=== PATIENT | male | born 1945 | race Caucasian/White ===

== ENCOUNTER 2018-03-21 11:51 | Day surgery (SDC) | payer MEDICARE, OTHER ==
[~2018-03-21] VITALS: Ht 188 cm; Wt 112.5 kg
[~2018-03-21 11:51] MED LIST: ASPI81CH PO; CELE100 PO; HYDACE5 PO; HYDCHL12.5; LISI20; META800 PO; METO100ER PO; Mobic15 MG PO; Multiple Vitam1 EAC1 PO; ZESTRIL40 MG PO
--- NOTE | 2018-03-21 12:47 | NUR ---
History, Chart, Medications and Allergies reviewed before start of procedure.Lungs clear T/O to Auscultation.PRE OP TEACHING DONE. AT BEDSIDE.
[2018-03-21] MEDS ORDERED: [UNRECOGNIZED DRUG - CODE] PO (16:21)
[2018-03-21] MEDS ORDERED: [UNRECOGNIZED DRUG - CODE] PO (16:22)
--- NOTE | 2018-03-21 16:45 | NUR ---
[id number] TO LEFT KNEE
--- NOTE | 2018-03-21 20:50 | NUR ---
2049: PT REMAINS HYPERTENSIVE POST-OP AND RN CLARIFIES WITH PT THAT HOME 100MG METOPROLOL IS TAKEN BID; ORDER CHANGED TO REFLECT APPROPRIATE DOSING TIMES WITH DR. CLOUD NOTIFICATION.
[2018-03-22 05:29] LABS: BASOPHILS ABSOLUTE AUTO 0.02 K/mm3 (0.00-0.23); BASOPHILS PERCENT AUTO 0 % (0-2); EOSINOPHILS ABSOLUTE AUTO 0.01 K/mm3 (0.00-0.68); EOSINOPHILS PERCENT AUTO 0 % (0-6); Hematocrit 40.2 % (37.0-53.0); IMMATURE GRAN ABSOLUTE AUTO 0.03 K/mm3 (0.00-0.10); IMMATURE GRAN PERCENT AUTO 0 % (0-1); LYMPHOCYTES ABSOLUTE AUTO 1.33 K/mm3 (0.84-5.20); LYMPHOCYTES PERCENT AUTO 11 % (21-46); MONOCYTES ABSOLUTE AUTO 1.16 K/mm3 (0.16-1.47); MONOCYTES PERCENT AUTO 10 % (4-13); Mean Corpuscular HGB 28.2 pg (26.0-34.0); Mean Corpuscular HGB Conc 32.3 g/dL (31.5-36.5); Mean Corpuscular Volume 87 fL (80-100); Mean Platelet Volume 12.1 fL (9.1-12.4); NEUTROPHILS ABSOLUTE AUTO 9.23 K/mm3 (1.96-9.15); NEUTROPHILS PERCENT AUTO 78 % (41-73); Platelet Count 192 K/mm3 (150-400); RDW Coefficient Variation 14.9 % (11.7-14.2); RDW Standard Deviation 47.1 fL (35.1-46.3); Red Blood Cell Count 4.61 M/mm3 (4.30-5.90); White Blood Cell Count 11.78 K/mm3 (4.00-11.30)
[2018-03-22 06:21] LABS: Anion Gap 9 mmol/L (6-16); Blood Urea Nitrogen 13 mg/dL (8-24); Bun/Creatinine Ratio 15.5 (12.0-20.0); CO2, Blood 23 mmol/L (21-32); Calcium, Blood 8.2 mg/dL (8.5-10.1); Chloride, Blood 105 mmol/L (98-108); Creatinine, Blood 0.84 mg/dL (0.60-1.20); Glomerular Filtration Rate >60 (60-); Glucose, Blood 125 mg/dL (70-99); Potassium, Blood 4.3 mmol/L (3.5-5.5); Sodium, Blood 137 mmol/L (136-145)
[2018-03-22] MEDS ORDERED: ACET500 PO (10:40)
[2018-03-22] MEDS ORDERED: OXYC5 PO (10:41)
[2018-03-22] MEDS ORDERED: XARELTO10 MG PO (10:42)
--- NOTE | 2018-03-22 12:47 | NUR ---
PT MEDICATED WITH TORADOL IV PER ORDERS. FAMILY AT BEDSIDE. PT SITTING IN CHAIR. CRYOTHERAPY TO KNEE.
--- NOTE | 2018-03-22 13:20 | NUR ---
pt up to rr with min assistance. uses walker.
--- NOTE | 2018-03-22 15:39 | NUR ---
DISCHARGE PT AND FAMILY PROVIDED WITH WRITTEN AND VERBAL DISCHARGE INSTRUCTIONS. THEY REPORTED UNDERSTANDING AFTER QUESTIONS WERE ANSWERED. DRESSINGS, ROSALIO HOSE AND PRESCRIPTIONS ALSO PROVIDED. PT ESCORTED OUT AT 1505 IN W/C BY JAY VICKERS.
== END 2018-03-22 15:15 | disposition home or self-care (01) ==
LOC: ORSCMMR 11:51 → EDSTATUS 13:30 → ORD 13:30 → ORSCMMR 13:30 → SURS 17:22 → ORSCMMR 17:22 → SURS 03-22 15:15 → ORSCMMR 03-22 15:15
PROVIDERS: Orthopaedic Surgery
PROC: 0SRD0J9 Replacement of Left Knee Joint with Synthetic Substitute, Cemented, Open Approach (ICD-10-PCS; principal; 2018-03-21 13:30)
DX: M17.12 Unilateral primary osteoarthritis, left knee (principal); I10 Essential (primary) hypertension; Z86.718 Personal history of other venous thrombosis and embolism; E66.01 Morbid (severe) obesity due to excess calories; Z68.35 Body mass index [BMI] 35.0-35.9, adult; Z79.899 Other long term (current) drug therapy; Z79.82 Long term (current) use of aspirin
CPT/HCPCS: 36415; 73560-LT; 80048; 83735; 85025; 88300; 97110; 97116; 97161; 97530; C1713; C1776; J0171; J0690; J0735; J1100; J1885; J2250; J2405; J2795; J3010; J7120

== ENCOUNTER 2023-05-26 16:55 | Inpatient (IN) | payer MEDICARE, OTHER ==
[~2023-05-26] VITALS: Ht 188 cm; Wt 130.6 kg
[~2023-05-26 16:55] MED LIST changes: +ACET500 PO; +OXYC5 PO; +XARELTO10 MG PO; +[UNRECOGNIZED DRUG - CODE] PO; +[UNRECOGNIZED DRUG - CODE] PO
[2023-05-26] MEDS ORDERED: LOSARTAN POTASS25 M2 PO (17:06)
[2023-05-26] MEDS ORDERED: AMLODIPINE BESYL5 MG PO (17:06)
[2023-05-26] MEDS ORDERED: ALLOPURINOL100 M1 PO (17:06)
[2023-05-26 17:19] LABS: BASOPHILS ABSOLUTE AUTO 0.04 K/mm3 (0.00-0.23); BASOPHILS PERCENT AUTO 0 % (0-2); EOSINOPHILS ABSOLUTE AUTO 0.18 K/mm3 (0.00-0.68); EOSINOPHILS PERCENT AUTO 1 % (0-6); Hematocrit 45.5 % (37.0-53.0); IMMATURE GRAN ABSOLUTE AUTO 0.43 K/mm3 (0.00-0.10); IMMATURE GRAN PERCENT AUTO 2 % (0-1); LYMPHOCYTES ABSOLUTE AUTO 0.66 K/mm3 (0.84-5.20); LYMPHOCYTES PERCENT AUTO 3 % (21-46); MONOCYTES ABSOLUTE AUTO 0.68 K/mm3 (0.16-1.47); MONOCYTES PERCENT AUTO 4 % (4-13); Mean Corpuscular HGB 31.7 pg (26.0-34.0); Mean Corpuscular HGB Conc 35.2 g/dL (31.5-36.5); Mean Corpuscular Volume 90 fL (80-100); Mean Platelet Volume 11.5 fL (9.1-12.4); NEUTROPHILS ABSOLUTE AUTO 17.21 K/mm3 (1.96-9.15); NEUTROPHILS PERCENT AUTO 90 % (41-73); Platelet Count 151 K/mm3 (150-400); RDW Coefficient Variation 13.5 % (11.7-14.2); RDW Standard Deviation 45.1 fL (35.1-46.3); Red Blood Cell Count 5.04 M/mm3 (4.30-5.90)
[2023-05-26 17:37] LABS: Albumin/Globulin Ratio 0.6 (0.8-1.8); Bilirubin, Total 1.4 mg/dL (0.1-1.0); Calcium, Blood 8.7 mg/dL (8.5-10.1); Creatinine, Blood 0.83 mg/dL (0.60-1.20); Globulin, Blood 4.9 g/dL (2.2-4.0); Potassium, Blood 3.5 mmol/L (3.5-5.5); Total Protein, Blood 7.9 g/dL (6.4-8.2)
[2023-05-26] MEDS ORDERED: NS 1,000 ML IV SCH ×2 (18:05→23:00)
[2023-05-26] MEDS ORDERED: FentaNYL Citrate 50 MCG/ML 2 ML Injection IV ONE ×2 (18:05→19:25)
[2023-05-26] MEDS ORDERED: Ondansetron HCl 2 MG / ML 2ML Vial IV ONE (18:10)
[2023-05-26 19:03] LABS: Influenza A, PCR NEGATIVE (NEGATIVE); Influenza B, PCR NEGATIVE (NEGATIVE); Resp Syncytial Virus, PCR NEGATIVE (NEGATIVE); SARS-Cov-2 (COVID-19) PCR, MMC NEGATIVE (NEGATIVE)
[2023-05-26] MEDS ORDERED: Acetaminophen 325 MG TABLET PO ONE (19:25)
[2023-05-26] MEDS ORDERED: OxyCODONE HCL 5 MG TAB PO ONE (21:35)
[2023-05-26 21:42] LABS: Adenovirus F 40/41 Not Detected (NOT DETECT); Astrovirus Not Detected (NOT DETECT); Campylobacter Sp Not Detected (NOT DETECT); Cryptosporidium Not Detected (NOT DETECT); Cyclospora Cayetanensis Not Detected (NOT DETECT); E. Coli O157 Not Detected (NOT DETECT); Entamoeba Histolytica Not Detected (NOT DETECT); Enteroaggregative E. coli-EAEC Not Detected (NOT DETECT); Enteropathogenic E. coli-EPEC Not Detected (NOT DETECT); Enterotoxigenic E. coli-ETEC Not Detected (NOT DETECT); Giardia Lamblia Not Detected (NOT DETECT); Norovirus GI/GII Detected (NOT DETECT); Plesiomonas Shigelloides Not Detected (NOT DETECT); Rotavirus A Not Detected (NOT DETECT); Salmonella Sp Not Detected (NOT DETECT); Sapovirus Not Detected (NOT DETECT); Shiga Toxin-prod E. coli-STEC Not Detected (NOT DETECT); Shigella/Enteroin E. coli-EIEC Not Detected (NOT DETECT); Vibrio Cholerae Not Detected (NOT DETECT); Vibrio Sp Not Detected (NOT DETECT); Yersinia Enterocolitica Not Detected (NOT DETECT)
[2023-05-26 21:55] LABS: Appearance, Urine Hazy (Clear); Bilirubin, Urine Neg (Neg); Blood, Urine 3+ (Neg); Color, Urine Yellow (P-Yellow); Glucose Qualitative, Urine Neg (Neg); Ketones, Urine 3+ (Neg); Leukocyte Esterase, Urine 3+ (Neg); Nitrite, Urine Neg (Neg); Protein, Urine 2+ (Neg); Specific Gravity, Urine 1.015 (1.003-1.022); Urobilinogen, Urine NORM (Normal)
[2023-05-26] MEDS ORDERED: CefTRIAXone Sodium 1,000 MG in NS 100 ML IV SCH (22:00)
[2023-05-26] MEDS ORDERED: Naloxone HCl 0.4MG / ML 1ML Vial IV PRN (22:20)
[2023-05-26] MEDS ORDERED: OxyCODONE HCL 5 MG TAB PO PRN (22:20)
[2023-05-26] MEDS ORDERED: FentaNYL Citrate 50 MCG/ML 2 ML Injection IV PRN (22:20)
[2023-05-26] MEDS ORDERED: Ondansetron HCl 2 MG / ML 2ML Vial IV PRN (22:20)
[2023-05-26] MEDS ORDERED: Acetaminophen 325 MG TABLET PO PRN (22:20)
[2023-05-26 22:23] LABS: White Blood Cells, Urine 25-50 /hpf (0-5)
[2023-05-26 22:24] LABS: Bacteria Mod /hpf; Red Blood Cells, Urine 0-2 /hpf (0-2); Squamous Epithelial Cells Few /hpf (Few)
[2023-05-26] MEDS ORDERED: Metoprolol Succinate 50 MG TABCR PO SCH (23:00)
[2023-05-27 00:14] VITALS: BP 142/97
--- NOTE | 2023-05-27 02:22 | NUR ---
PT ARRIVED MARION 0004. PT TRANSFERED FROM [facility] TO HOSPITAL BED VIA THE BLACK SLIDE SHEET. PT WEAK, PER NURSE REPORT, GEOPHYSICAL OBSERVER STATED THAT PT WAS A 2P SBAX TO BSC FOR TRANSFERS. PT ADMITTED FOR ENTERITIS SEPSIS. PT WAS ON THE FLOOR AT HIS HOME FOR SEVERAL HOURS. PT A&O x4, VSS, AFEBRILE, PT ON RA, RESP RATE EVEN AND UNLABORED. NO C/O NAUSEA, NO VOMITING. PT USED BEDPAN HE FELT HE HAD TO HAVE BM. PRN IV FENTANYL GIVEN WITH GOOD RESULTS. PT RECEIVING CONTINUOUS IV FLUIDS. PT REFUSED 2 RN SKIN ASSESSMENT. PT STATED THAT HE DID NOT HAVE ANY SKIN ISSUES, NO DECUBITUS ULCERS. PAIN LOCATED TO L KNEE, R SHOULDER AND HAS CHRONIC LOWER BACK PAIN. CALL LIGHT WITHIN REACH, WCTM.
[2023-05-27 06:14] LABS: BASOPHILS ABSOLUTE AUTO 0.05 K/mm3 (0.00-0.23); BASOPHILS PERCENT AUTO 0 % (0-2); EOSINOPHILS PERCENT AUTO 0 % (0-6); Hematocrit 47.7 % (37.0-53.0); Hemoglobin 16.2 g/dL (13.5-17.5); IMMATURE GRAN ABSOLUTE AUTO 0.28 K/mm3 (0.00-0.10); IMMATURE GRAN PERCENT AUTO 2 % (0-1); LYMPHOCYTES ABSOLUTE AUTO 0.95 K/mm3 (0.84-5.20); LYMPHOCYTES PERCENT AUTO 5 % (21-46); MONOCYTES PERCENT AUTO 6 % (4-13); Mean Corpuscular HGB 31.7 pg (26.0-34.0); Mean Corpuscular Volume 93 fL (80-100); Mean Platelet Volume 11.8 fL (9.1-12.4); NEUTROPHILS ABSOLUTE AUTO 15.08 K/mm3 (1.96-9.15); NEUTROPHILS PERCENT AUTO 86 % (41-73); Platelet Count 156 K/mm3 (150-400); RDW Coefficient Variation 13.6 % (11.7-14.2); RDW Standard Deviation 46.5 fL (35.1-46.3); Red Blood Cell Count 5.11 M/mm3 (4.30-5.90); White Blood Cell Count 17.46 K/mm3 (4.00-11.30)
[2023-05-27 08:30] VITALS: BP 123/89
[2023-05-27] MEDS ORDERED: AmLODIPine Besylate 5 MG Tab PO SCH (09:00)
[2023-05-27] MEDS ORDERED: Tamsulosin HCl 0.4 MG Cap PO SCH (09:00)
[2023-05-27] MEDS ORDERED: Ketorolac Tromethamine 30mg Vial IM ONE (09:00)
[2023-05-27] MEDS ORDERED: Enoxaparin 40 MG/0.4 ML SYR SC SCH (09:00)
[2023-05-27] MEDS ORDERED: Losartan Potassium 25 MG Tab PO SCH (09:00)
[2023-05-27] MEDS ORDERED: NS 1,000 ML IV SCH (09:00)
[2023-05-27] MEDS ORDERED: Lactobacil 2-S.Thermo-Bifido 1 1 Cap PO SCH (09:00)
[2023-05-27] MEDS ORDERED: Cefepime HCl 2,000 MG in NS 100 ML IV SCH (11:00)
[2023-05-27] MEDS ORDERED: Ketorolac Tromethamine 15mg Vial IV ONE (11:25)
[2023-05-27 14:01] VITALS: BP 88/66
[2023-05-27 14:10] VITALS: BP 93/63
[2023-05-27] MEDS ORDERED: Metoprolol Tartrate 1 MG/ML 5 ML VIAL IV PRN (14:50)
[2023-05-27 16:35] LABS: Albumin, Blood 2.8 g/dL (3.4-5.0); Albumin/Globulin Ratio 0.5 (0.8-1.8); Bilirubin, Total 1.1 mg/dL (0.1-1.0); Calcium, Blood 8.3 mg/dL (8.5-10.1); Creatinine, Blood 0.61 mg/dL (0.60-1.20); Globulin, Blood 5.1 g/dL (2.2-4.0); Potassium, Blood 3.1 mmol/L (3.5-5.5); Total Protein, Blood 7.9 g/dL (6.4-8.2)
[2023-05-27] MEDS ORDERED: Potassium Chloride 20 MEQ TabCR PO ONE (18:45)
--- NOTE | 2023-05-27 19:35 | NUR ---
SHIFT SUMMARY PT UNABLE TO OBTAIN MRI DUE TO WT. US ORDERED BY INSTEAD. REPORTS OF SEVERE R SHOULDER PAIN AND L KNEE PAIN WHICH HE REPORTED TORODAL DIDN'T HELP AT ALL. ICE DID EASE PAIN A BIT THOUGH. HEART RATE RAPID AND IRREGULAR THIS MORNING. OBTAINED TELE ORDERS AND FOUND TO BE IN AFIB WITH HEART RATE IN 110-130'S. AT BEDSIDE THIS AFTERNOON. INSTRUCTED ON HOW TO CLEAN AT HOME DUE TO NOROVIRUS. UP TO RECLINER BY P.T. THIS MORNING AND THEN PT REPORTS HIS SON IN LAW PUT HIM BACK TO BED. REQUESTING TO USE BATHROOM LATE MORNING FOR A BM. INSISTED ON USING COMMODE OR BATHROOM RATHER THAN BEDPAN. ONCE BEING ATTEMPTED TO GET UP HE WAS RESISTANT TO SAFEST WAYS TO GET HIM UP AND ENDED UP NEEDING TO USE SIT TO STAND FOR TRANSFERRING. WOULDN'T FOLLOW DIRECTIONS FOR HIS OR STAFF SAFETY DUE TO HIS SHOULDER AND L KNEE HURTING. MD AWARE OF BP AND RHYTHM CHANGES.
[2023-05-27 20:37] VITALS: BP 102/77
[2023-05-28 03:14] VITALS: BP 119/87
[2023-05-28 05:50] LABS: BASOPHILS ABSOLUTE AUTO 0.05 K/mm3 (0.00-0.23); BASOPHILS PERCENT AUTO 0 % (0-2); EOSINOPHILS ABSOLUTE AUTO 0.01 K/mm3 (0.00-0.68); EOSINOPHILS PERCENT AUTO 0 % (0-6); Hematocrit 41.8 % (37.0-53.0); Hemoglobin 14.3 g/dL (13.5-17.5); IMMATURE GRAN ABSOLUTE AUTO 0.14 K/mm3 (0.00-0.10); IMMATURE GRAN PERCENT AUTO 1 % (0-1); LYMPHOCYTES ABSOLUTE AUTO 0.99 K/mm3 (0.84-5.20); LYMPHOCYTES PERCENT AUTO 7 % (21-46); MONOCYTES ABSOLUTE AUTO 1.35 K/mm3 (0.16-1.47); MONOCYTES PERCENT AUTO 10 % (4-13); Mean Corpuscular HGB 31.6 pg (26.0-34.0); Mean Corpuscular HGB Conc 34.2 g/dL (31.5-36.5); Mean Corpuscular Volume 93 fL (80-100); Mean Platelet Volume 12.1 fL (9.1-12.4); NEUTROPHILS ABSOLUTE AUTO 11.59 K/mm3 (1.96-9.15); NEUTROPHILS PERCENT AUTO 82 % (41-73); Platelet Count 160 K/mm3 (150-400); RDW Coefficient Variation 13.5 % (11.7-14.2); RDW Standard Deviation 46.2 fL (35.1-46.3); Red Blood Cell Count 4.52 M/mm3 (4.30-5.90); White Blood Cell Count 14.13 K/mm3 (4.00-11.30)
[2023-05-28 06:35] LABS: Albumin, Blood 2.2 g/dL (3.4-5.0); Albumin/Globulin Ratio 0.5 (0.8-1.8); Bilirubin, Total 1.2 mg/dL (0.1-1.0); Bun/Creatinine Ratio 24.8 (12.0-20.0); Calcium, Blood 7.9 mg/dL (8.5-10.1); Creatinine, Blood 0.61 mg/dL (0.60-1.20); Globulin, Blood 4.2 g/dL (2.2-4.0); Potassium, Blood 2.9 mmol/L (3.5-5.5); Total Protein, Blood 6.4 g/dL (6.4-8.2)
[2023-05-28 07:54] VITALS: BP 141/84
[2023-05-28 07:55] VITALS: BP 141/84
[2023-05-28] MEDS ORDERED: Potassium Chloride 40 MEQ in NS 250 ML IV ONE ×2 (07:55→18:55)
[2023-05-28] MEDS ORDERED: Potassium Chloride 20 MEQ TabCR PO ONE ×2 (08:00→19:00)
[2023-05-28] MEDS ORDERED: Lidocaine HCl 2% 10 ML SDA INJ ONE (15:50)
[2023-05-28] MEDS ORDERED: OxyCODONE HCL 5 MG TAB PO PRN (16:30)
[2023-05-28 18:17] LABS: Body Fluid Crystals NEG (NEGATIVE)
[2023-05-28 18:24] LABS: BODY FLUID RBC 0.008 M/mm3 (0-0)
[2023-05-28 18:32] LABS: Glucose, Body Fluid 33 mg/dL; Protein, Body Fluid 2.5 g/dL
[2023-05-28 18:44] LABS: RBC Count, Synovial Fluid 8000 /mm3 (0-0); WBC Count, Synovial Fluid 42040 /mm3 (0-180)
--- NOTE | 2023-05-28 19:10 | NUR ---
SHIFT SUMMARY PATIENT ALERT AND INTERACTIVE BUT VERY PAINFUL EVEN TO TOUCH. PATIENT DIFFICULT TO TURN BECAUSE OF RESISTING WITH TURNING RELATED TO PAIN. PATIENT HAVING FREQUENT LIQUID STOOLS AND ABDOMINAL PAIN. PATIENT NAUSEATED AND NOT INTERESTED IN EATING. PATIENT DRINKING SOME LIQUIDS. IV FLUIDS INFUSING. NEW IV STARTED IN HAND. POTASSIUM RIDER GIVEN, PO HELD BECAUSE OF NOT EATING AND ABDOMINAL PAIN AND DIARRHEA. CT SCAN DONE OF L KNEE. NEEDLE ASPERATION WITH DRAINAGE SENT TO LAB OF L KNEE. PATIENT MEDICATED THROUGHOUT THE DAY FOR PAIN. PATIENT EASILY AXIOUS WITH ANY MOVEMENT OR POSITIONING.
[2023-05-28 19:33] LABS: Monocytes/Macrophages, Synovia 9 % (0-65); Neutrophils, Synovial Fluid 91 % (0-24)
[2023-05-28 19:34] LABS: Appearance, Synovial Fluid Cloudy (Clear); Color, Synovial Fluid Yellow (None-P Yel)
[2023-05-28 19:43] VITALS: BP 151/97
[2023-05-29 02:46] VITALS: BP 124/76
--- NOTE | 2023-05-29 04:21 | NUR ---
SHIFT SUMMARY PATIENT IS ALERT AND ORIENTED X3. PATIENT HAS HAD NO ACUTE EVENTS THIS SHIFT. VITAL SIGNS REVIEWED. PATIENT HAS BEEN HAVING FREQUENT LIQUID BOWEL MOVEMENTS THIS SHIFT. PATIENT HAS HAD NO COMPLAINTS OF PAIN, NAUSEA, SOB OR VOMITTING THIS SHIFT. PATIENT HAS HAD FLUIDS INFUSING ORDERED. PATIENT IS A HEAVY TWO PERSON ASSIST. BED IN LOCKED AND LOWEST POSITION. CALL LIGHT IN PLACE. WILL MONITOR UNTIL SHIFT CHANGE.
[2023-05-29 05:07] LABS: BASOPHILS ABSOLUTE AUTO 0.04 K/mm3 (0.00-0.23); BASOPHILS PERCENT AUTO 0 % (0-2); EOSINOPHILS ABSOLUTE AUTO 0.01 K/mm3 (0.00-0.68); EOSINOPHILS PERCENT AUTO 0 % (0-6); Hemoglobin 14.9 g/dL (13.5-17.5); IMMATURE GRAN ABSOLUTE AUTO 0.28 K/mm3 (0.00-0.10); IMMATURE GRAN PERCENT AUTO 2 % (0-1); LYMPHOCYTES PERCENT AUTO 9 % (21-46); MONOCYTES ABSOLUTE AUTO 2.21 K/mm3 (0.16-1.47); MONOCYTES PERCENT AUTO 14 % (4-13); Mean Corpuscular HGB 32.3 pg (26.0-34.0); Mean Corpuscular HGB Conc 35.5 g/dL (31.5-36.5); Mean Corpuscular Volume 91 fL (80-100); NEUTROPHILS PERCENT AUTO 74 % (41-73); Platelet Count 180 K/mm3 (150-400); RDW Coefficient Variation 13.2 % (11.7-14.2); RDW Standard Deviation 44.1 fL (35.1-46.3); Red Blood Cell Count 4.61 M/mm3 (4.30-5.90); White Blood Cell Count 15.34 K/mm3 (4.00-11.30)
[2023-05-29 05:36] LABS: Albumin, Blood 2.1 g/dL (3.4-5.0); Albumin/Globulin Ratio 0.5 (0.8-1.8); Bilirubin, Total 1.2 mg/dL (0.1-1.0); Bun/Creatinine Ratio 14.4 (12.0-20.0); Calcium, Blood 7.8 mg/dL (8.5-10.1); Creatinine, Blood 0.62 mg/dL (0.60-1.20); Globulin, Blood 4.4 g/dL (2.2-4.0); Total Protein, Blood 6.5 g/dL (6.4-8.2)
[2023-05-29] MEDS ORDERED: Potassium Chloride 20 MEQ TabCR PO ONE (07:00)
[2023-05-29] MEDS ORDERED: Potassium Chloride 40 MEQ in NS 250 ML IV ONE (07:20)
[2023-05-29] MEDS ORDERED: Vancomycin HCL 2,500 MG in NS 250 ML IV ONE (07:30)
[2023-05-29 07:55] VITALS: BP 168/107
[2023-05-29 07:56] VITALS: BP 168/107
--- NOTE | 2023-05-29 09:00 | NUR ---
pt laying in bed awake a/ox4, cooperative with care, follows commands well, reports pain of 8/10, medicated per orders, lungs are clear t/o, on r/a, resp even and unlabored, no cough noted, hrr, no edema noted, ppp+2, cap refill<3 sec, vs stable, afebrile, iv sites are clear and patent, btx4, abd round soft nontender, voids via urinal and briefs, having loose dark colored stools, skin c/w/d, ang kim, call light in reach. is painful to move in bed, is to weak to get oob today.
[2023-05-29 17:18] VITALS: BP 153/110
--- NOTE | 2023-05-29 18:44 | NUR ---
pt is resting quietly in bed, is painful to change his briefs, he sleeps when left undisturbed, continues to have loose dark stools. no further changes this shift. call light in reach.
[2023-05-29 19:39] VITALS: BP 158/87
[2023-05-30 02:46] VITALS: BP 152/98
[2023-05-30 05:15] LABS: BASOPHILS ABSOLUTE AUTO 0.06 K/mm3 (0.00-0.23); BASOPHILS PERCENT AUTO 0 % (0-2); EOSINOPHILS ABSOLUTE AUTO 0.07 K/mm3 (0.00-0.68); EOSINOPHILS PERCENT AUTO 1 % (0-6); Hematocrit 42.6 % (37.0-53.0); Hemoglobin 14.9 g/dL (13.5-17.5); IMMATURE GRAN ABSOLUTE AUTO 0.56 K/mm3 (0.00-0.10); IMMATURE GRAN PERCENT AUTO 4 % (0-1); LYMPHOCYTES ABSOLUTE AUTO 1.67 K/mm3 (0.84-5.20); LYMPHOCYTES PERCENT AUTO 13 % (21-46); MONOCYTES PERCENT AUTO 13 % (4-13); Mean Corpuscular HGB 32.3 pg (26.0-34.0); Mean Corpuscular Volume 92 fL (80-100); Mean Platelet Volume 11.6 fL (9.1-12.4); NEUTROPHILS ABSOLUTE AUTO 9.25 K/mm3 (1.96-9.15); NEUTROPHILS PERCENT AUTO 69 % (41-73); Platelet Count 207 K/mm3 (150-400); RDW Coefficient Variation 13.2 % (11.7-14.2); RDW Standard Deviation 44.7 fL (35.1-46.3); Red Blood Cell Count 4.62 M/mm3 (4.30-5.90); White Blood Cell Count 13.41 K/mm3 (4.00-11.30)
--- NOTE | 2023-05-30 05:47 | NUR ---
END OF SHIFT SUMMARY PT A&OX4, ANXIOUS AND FORGETFUL AT TIMES. C/O BACK AND LEFT KNEE PAIN, INCREASING WITH REPOSITIONING. MEDICATED PER EMAR WITH GOOD EFFECT. REMAINS AFIB 90S-110S ON TELE. AFEBRILE THIS SHIFT. MULTIPLE LOOSE INCONTINENT DARK STOOLS, MIXED URINARY CONTINENCE. JOHN/SKIN CARE PROVIDED. ABD VERY DISTENDED, ALONG WITH SOME +1 BLE EDEMA. IVF INFUSING ORDERED. REMAINS ON RA, SOB ON EXERTION, SATS REMAINING >92.
[2023-05-30 05:49] LABS: Albumin/Globulin Ratio 0.4 (0.8-1.8); Bilirubin, Total 1.2 mg/dL (0.1-1.0); Creatinine, Blood 0.64 mg/dL (0.60-1.20); Globulin, Blood 4.5 g/dL (2.2-4.0); Potassium, Blood 3.1 mmol/L (3.5-5.5); Total Protein, Blood 6.5 g/dL (6.4-8.2)
[2023-05-30 06:40] VITALS: BP 174/109
[2023-05-30 06:44] VITALS: BP 175/101
[2023-05-30] MEDS ORDERED: Potassium Chloride 40 MEQ in NS 250 ML IV ONE (07:55)
[2023-05-30 07:59] VITALS: BP 142/96
[2023-05-30] MEDS ORDERED: Potassium Chloride 20 MEQ TabCR PO ONE (08:00)
[2023-05-30] MEDS ORDERED: Losartan Potassium 25 MG Tab PO SCH (09:00)
[2023-05-30] MEDS ORDERED: AmLODIPine Besylate 5 MG Tab PO SCH (09:00)
[2023-05-30 14:12] LABS: Anti-Xa UFH, PHA Monitoring <0.10 IU/mL; International Normalized Ratio 1.18; Prothrombin Time Results 12.3 Sec (9.7-11.5)
[2023-05-30] MEDS ORDERED: Dose Adjust by Pharmacy XX STA ×2 (14:16→23:23)
[2023-05-30] MEDS ORDERED: Heparin Sodium,Porcine/0.5 NS 500 ML IV SCH (14:20)
--- NOTE | 2023-05-30 17:01 | NUR ---
SHIFT SUMMARY PT RESTING QUIETLY AT START OF SHIFT. IN CONTACT ISO FOR ENTERITIS, NOROVIRUS. PT WITH INFECTED/SEPTIC L KNEE HARDWARE. L KNEE ASPIRATED BY DR GOLDEN ON THE . PT TO HAVE SX DEBRIDEMENT IN AM. PT TO BE NPO AT [place]. STARTED ON HEPARIN TODAY FOR A-FIB TO AVOID ELIQUIS UNTIL AFTER SX. HEPARIN TO STOP AT 0500 AM, PER ORDERS. IVF'S D/C'D TODAY, PT IS DRINKING EXTREMELY WELL. STILL HAVING LIQUID GREEN/BLK STOOLS. ABD VERY DISTENDED. INCONTINENT OF BOWEL AND BLADDER MOST OF THE TIME. CHRONIC PAIN TO BACK AND R SHOULDER WITH TURNING. NO C/O WHEN LYING STILL. WANTING TO BE NOTIFIED OF TIME OF SX IF POSSIBLE SO SHE CAN BE HERE FOR POST OP. NO FURTHER NEEDS AT THIS TIME. CALL LT IN REACH.
[2023-05-30 17:11] VITALS: BP 151/101
[2023-05-30 19:31] VITALS: BP 124/87
[2023-05-30 20:47] LABS: Vancomycin, Trough 12.6 ug/mL (5.0-10.0)
--- NOTE | 2023-05-31 00:50 | NUR ---
RECTAL TUBE ORDERS RECD FOR RECTAL TUBE INSERTION. PT EDUCATED AND CONSENTED TO PROCEDURE. FLEXISEAL RECTAL TUBE INSERTED BY PALMER PENALOZA RN WITH THIS RN ASSIST, PT TOLERATED WELL. WATERY GREEN/BLACK STOOL IMMEDIATELY COLLECTED IN TUBING. BAG SECURED TO BED ALLOWING FOR FREE FLOW.
[2023-05-31 04:08] VITALS: BP 137/89
--- NOTE | 2023-05-31 05:12 | NUR ---
END OF SHIFT SUMMARY PT A&OX4. CONTINUES TO HAVE ABD DISTENTION AND FREQUENT WATERY DARK GREEN STOOLS, OFTEN INCONTINENT. RASH/REDNESS TO BUTTOCKS/UPPER THIGH FROM STOOL INCONTINENCE, BARRIER CREAM AND JOHN CARE PERFORMED FREQUENTLY. RECTAL TUBE NOW IN PLACE, WORKING EFFECTIVELY. REMAINS AFIB ON TELE, RATE 90S-120S, INCREASING WITH PT ACTIVITY. PT ALSO SOB WITH TURNING AND REPOSITIONING IN BED HOWEVER O2 SAT REMAINS >92 ON RA. HEPARIN GTT INFUSED THROUGH NIGHT, TITRATED PER PHARMACY. STOPPED AT 0500 PER ORDERS, ANTI-XA LAB DRAWN IMMEDIATELY BEFORE GTT STOPPED PER CONSULTATION WITH SOLE PHARMACIST. PT REMAINS NPO AFTER MIDNIGHT FOR POSSIBLE LEFT KNEE SX TODAY. MEDICATED FOR BACK, RIGHT SHOULDER, AND LEFT KNEE PAIN WITH OXY AND TYLENOL WITH GOOD EFFECT.
[2023-05-31 05:33] LABS: Hematocrit 38.6 % (37.0-53.0); Hemoglobin 13.7 g/dL (13.5-17.5); Mean Corpuscular HGB 31.5 pg (26.0-34.0); Mean Corpuscular HGB Conc 35.5 g/dL (31.5-36.5); Mean Corpuscular Volume 89 fL (80-100); Mean Platelet Volume 11.8 fL (9.1-12.4); Platelet Count 243 K/mm3 (150-400); RDW Coefficient Variation 12.9 % (11.7-14.2); RDW Standard Deviation 41.9 fL (35.1-46.3); Red Blood Cell Count 4.35 M/mm3 (4.30-5.90)
[2023-05-31 05:48] LABS: Albumin, Blood 1.9 g/dL (3.4-5.0); Albumin/Globulin Ratio 0.5 (0.8-1.8); Bun/Creatinine Ratio 16.4 (12.0-20.0); Calcium, Blood 7.8 mg/dL (8.5-10.1); Creatinine, Blood 0.49 mg/dL (0.60-1.20); Globulin, Blood 4.1 g/dL (2.2-4.0); Potassium, Blood 2.7 mmol/L (3.5-5.5)
[2023-05-31 05:57] LABS: BAND PERCENT MAN 7 % (0-8); BASOPHILS PERCENT MAN 0 % (0-2); EOSINOPHILS PERCENT MAN 0 % (0-6); LYMPHOCYTES ABSOLUTE MAN 1.52 K/mm3 (0.84-5.20); LYMPHOCYTES PERCENT MAN 11 % (21-46); MONOCYTES ABSOLUTE MAN 2.08 K/mm3 (0.16-1.47); MONOCYTES PERCENT MAN 15 % (4-13); MYELOCYTE ABSOLUTE MAN 0.13 K/mm3 (0.00-0.00); MYELOCYTE PERCENT MAN 1 % (0-0); NEUTROPHILS ABSOLUTE MAN 10.14 K/mm3 (1.96-9.15); SEG NEUTROPHILS PERCENT MAN 66 % (41-73); TOTAL CELLS COUNTED 100
[2023-05-31] MEDS ORDERED: Potassium Chl 20MEQ/Water100ML 100 ML IV STA (06:14)
[2023-05-31 06:18] LABS: Magnesium, Blood 1.8 mg/dL (1.6-2.4); Phosphorus, Blood 1.5 mg/dL (2.5-4.9)
[2023-05-31] MEDS ORDERED: Potassium Chloride 10 Meq Tablet SA PO SCH (07:00)
[2023-05-31] MEDS ORDERED: Potassium Chloride 40 MEQ in NS 250 ML IV ONE (07:10)
[2023-05-31 07:59] VITALS: BP 132/92
[2023-05-31] MEDS ORDERED: NS 250 ML IV PRN (08:20)
[2023-05-31] MEDS ORDERED: Potassium Phosphate Dibasic 30 MM in Dextrose 5% 500 ML IV SCH (11:00)
[2023-05-31] MEDS ORDERED: Ketorolac Tromethamine 30mg Vial IV STA (11:05)
[2023-05-31] MEDS ORDERED: FentaNYL Citrate 50 MCG/ML 2 ML Injection IV PRN (11:10)
[2023-05-31] MEDS ORDERED: FentaNYL Citrate 50 MCG/ML 2 ML Injection IV STA (11:32)
[2023-05-31 12:06] VITALS: BP 107/73
[2023-05-31 16:38] VITALS: BP 136/85
--- NOTE | 2023-05-31 17:30 | NUR ---
SHIFT SUMMARY PT AxOx4. PLEASANT AND COOPERATIVE WITH CARE. PT'S (PARAS) AND DAUGHTER IN ROOM MOST OF THE DAY. PT REPORTED HIGH PAIN T/O THE MORNING INTO THE EARLY AFTERNOON. TELE CALLED TO REPORT HIGH HEART RATE MULTIPLE TIMES, WHICH SEEMED TO CORRELATE WITH PTS HIGHER PAIN LEVEL. PROVIDER NOTIFIED. MEDS ADMINISTERED PER EMAR WITH REPORTED RELIEF. PT WAS EXPECTED TO GO FOR I&D OF L KNEE TODAY. PROCEDURE WAS POSTPONED UNTIL TOMORROW. PT HAD RENAL/BLADDER ULTRASOUND AND VENOUS DUPLEX STUDY TODAY. PT RECEIVED BED BATH AND BEDDING CHANGE TODAY. PT REPORTED FEELING BETTER IN THE LATER AFTERNOON. HE IS CURRENTLY SITTING UP IN CHAIR WITH AT BEDSIDE. 2 MAX ASSIST WITH GB AND FWW FOR STAND PIVOT. PT STILL VERY WEAK. FAMILY BROUGHT IN IN DINNER. DENIES ANY NEEDS AT THIS TIME. CALL LIGHT IN REACH.
[2023-05-31 20:43] VITALS: BP 123/88
[2023-05-31 23:14] LABS: Bun/Creatinine Ratio 20.5 (12.0-20.0); Calcium, Blood 8.5 mg/dL (8.5-10.1); Creatinine, Blood 0.59 mg/dL (0.60-1.20); Phosphorus, Blood 2.4 mg/dL (2.5-4.9); Potassium, Blood 3.2 mmol/L (3.5-5.5)
[2023-06-01] VITALS (18 sets, daily range): BP systolic 100–166; BP diastolic 68–106
[2023-06-01] MEDS ORDERED: Dose Adjust by Pharmacy XX STA (02:45)
--- NOTE | 2023-06-01 06:46 | NUR ---
END OF SHIFT SUMMARY PT A&O X4. MAX ASSIST TO GET PT BACK TO BED FROM RECLINER, RECTAL TUBE DISLODGED DURING MOVE, NO OBVIOUS S/S TRAUMA. REINSERTED WITHOUT INCIDENT. LATER HAD SOME LEAKING AROUND TUBE DUE TO KINK. WATERY DARK GREEN STOOL COLLECTING. JOHN AREA CLEANSED, BARRIER CREAM APPLIED. REMAINS AFIB 110-120S ON TELE, WITH INCREASE TO 140S WITH ACTIVITY. MEDICATED FOR PAIN PRN. HEPARIN DRIP D/C AT 0500 PER MD ORDER. NPO AFTER MN FOR POSSIBLE SX.
[2023-06-01] MEDS ORDERED: Potassium Phosphate Dibasic 30 MM in Dextrose 5% 500 ML IV STA (07:18)
[2023-06-01 08:11] LABS: Hematocrit 38.9 % (37.0-53.0); Hemoglobin 13.5 g/dL (13.5-17.5); Mean Corpuscular HGB 31.5 pg (26.0-34.0); Mean Corpuscular HGB Conc 34.7 g/dL (31.5-36.5); Mean Corpuscular Volume 91 fL (80-100); Mean Platelet Volume 11.6 fL (9.1-12.4); Platelet Count 278 K/mm3 (150-400); RDW Coefficient Variation 13.2 % (11.7-14.2); RDW Standard Deviation 43.3 fL (35.1-46.3); Red Blood Cell Count 4.29 M/mm3 (4.30-5.90)
[2023-06-01 08:20] LABS: Vancomycin, Trough 14.4 ug/mL (5.0-10.0)
[2023-06-01 08:22] LABS: Albumin, Blood 1.8 g/dL (3.4-5.0); Albumin/Globulin Ratio 0.4 (0.8-1.8); Bilirubin, Total 0.7 mg/dL (0.1-1.0); Bun/Creatinine Ratio 26.6 (12.0-20.0); Calcium, Blood 8.2 mg/dL (8.5-10.1); Creatinine, Blood 0.56 mg/dL (0.60-1.20); Globulin, Blood 4.3 g/dL (2.2-4.0); Potassium, Blood 2.9 mmol/L (3.5-5.5); Total Protein, Blood 6.1 g/dL (6.4-8.2)
[2023-06-01 08:24] LABS: White Blood Cell Count 19.49 K/mm3 (4.00-11.30)
[2023-06-01 08:43] LABS: BAND PERCENT MAN 8 % (0-8); BASOPHILS ABSOLUTE MAN 0.19 K/mm3 (0.00-0.23); BASOPHILS PERCENT MAN 1 % (0-2); EOSINOPHILS ABSOLUTE MAN 0.38 K/mm3 (0.00-0.68); EOSINOPHILS PERCENT MAN 2 % (0-6); LYMPHOCYTES ABSOLUTE MAN 1.75 K/mm3 (0.84-5.20); LYMPHOCYTES PERCENT MAN 9 % (21-46); MONOCYTES ABSOLUTE MAN 0.97 K/mm3 (0.16-1.47); MONOCYTES PERCENT MAN 5 % (4-13); NEUTROPHILS ABSOLUTE MAN 16.17 K/mm3 (1.96-9.15); SEG NEUTROPHILS PERCENT MAN 75 % (41-73); TOTAL CELLS COUNTED 100
[2023-06-01] MEDS ORDERED: Metoprolol Succinate 50 MG TABCR PO SCH (09:00)
[2023-06-01] MEDS ORDERED: propofoL 20 ML IV ONE (12:08)
[2023-06-01] MEDS ORDERED: Rocuronium Bromide 10 MG/ML 5ML Injection IV ONE ×2 (12:09→15:25)
[2023-06-01] MEDS ORDERED: Bupivacaine 0.5% HCl 5 MG/ML 30MLVIAL ONE (12:49)
[2023-06-01] MEDS ORDERED: propofoL 60 ML IV ONE (13:41)
[2023-06-01] MEDS ORDERED: Midazolam HCl 1MG / ML 2ML Vial ONE (13:41)
[2023-06-01] MEDS ORDERED: FentaNYL Citrate 50 MCG/ML 2 ML Injection ONE (13:56)
[2023-06-01] MEDS ORDERED: Vancomycin HCl 1000 MG ADDvantage ONE (14:20)
--- NOTE | 2023-06-01 14:39 | NUR ---
06/01/23 1439 Poppy Mccracken BETADINE SOLUTION AND DAKIN'S 0.5% SOLUTION INSTILLED INTO L KNEE JOINT CAPSULE AND CLEANED BY DR. REYES
[2023-06-01] MEDS ORDERED: Phenylephrine HCl 100 MCG/ML-NS 10MLSYR (1MG/10ML) ONE (15:25)
[2023-06-01] MEDS ORDERED: Sugammadex Sodium 200 MG/2ML SDV (100 MG/ML) ONE (15:47)
[2023-06-01] MEDS ORDERED: HYDROmorphone HCl/Pf 1MG SYR ONE (16:35)
[2023-06-01] MEDS ORDERED: Loperamide HCl 2 MG Cap PO PRN (18:00)
[2023-06-01] MEDS ORDERED: NS 500 ML IV SCH (18:00)
--- NOTE | 2023-06-01 19:57 | NUR ---
PT IS A/OX4, PLEASANT AND COOPERATIVE. THE PT WAS BEDREST TODAY DUE TO PAIN IN THE LEFT KNEE AND RIGHT SHOULDER. PT CONTINUES TO HAVE WATERY DARK DIARRHEA T/O THE DAY, THE PT WENT TO THE DAY SURGERY FROM 11:30 AM TO APROX 1800 THIS AFTERNOON FOR AN ID OF THE LEFT KNEE AND RIGHT SHOULDER. PT CAME BACK A/OX4, IA WAS MEDICATED FOR PAIN. THE PTS FAMILY WAS AT THE BEDSIDE . REPORT GIVEN TO THE NIGHT NURSE, CALL LIGHT IN REACH
--- NOTE | 2023-06-01 22:33 | NUR ---
CALLED HOSPITALIST INFORMED HIM OF POTASSIUM LAB OF 3.0, ALSO THIS MORNING'S DOSE OF POTASSIUM WAS HELD DUE TO SURGERY. ORDER RECEIVED TO GIVE 40 MEQ K+ NOW
[2023-06-01] MEDS ORDERED: Potassium Chloride 20 MEQ TabCR PO ONE (22:40)
[2023-06-02 00:54] VITALS: BP 151/85
[2023-06-02 05:11] VITALS: BP 141/88
[2023-06-02 06:03] LABS: Hematocrit 34.5 % (37.0-53.0); Hemoglobin 12.2 g/dL (13.5-17.5); Mean Corpuscular HGB Conc 35.4 g/dL (31.5-36.5); Mean Corpuscular Volume 91 fL (80-100); Mean Platelet Volume 11.3 fL (9.1-12.4); Platelet Count 324 K/mm3 (150-400); RDW Coefficient Variation 13.2 % (11.7-14.2); RDW Standard Deviation 43.6 fL (35.1-46.3); Red Blood Cell Count 3.81 M/mm3 (4.30-5.90); White Blood Cell Count 18.95 K/mm3 (4.00-11.30)
--- NOTE | 2023-06-02 06:20 | NUR ---
SHIFT SUMMARY PATIENT WAS INCONTINENT OF LIQUID STOOL 3 TIMES. PAIN MED EFFICTIVELY CONTROLLED HIS INCISONAL PAIN. DRESSINGS CD&I. DID HAVE TO CHANGE THE UPPER SUNSHINE WARP ON HIS THIGH, SOILED WITH STOOL. REMAINS IN CONTACT ISOLATION FOR NORO VIRUS. TELE A FIB 77-92 RATE. POWERGLIDE CATHETER ABLE TO EASILY DRAW MORNING LABS WHEN WE STRECHED HIS ARM OUT FROM HIS BODY.
[2023-06-02 06:34] LABS: Albumin, Blood 1.9 g/dL (3.4-5.0); Albumin/Globulin Ratio 0.5 (0.8-1.8); Bilirubin, Total 0.8 mg/dL (0.1-1.0); Bun/Creatinine Ratio 14.8 (12.0-20.0); Calcium, Blood 7.8 mg/dL (8.5-10.1); Creatinine, Blood 0.54 mg/dL (0.60-1.20); Globulin, Blood 4.2 g/dL (2.2-4.0); Potassium, Blood 3.1 mmol/L (3.5-5.5); Total Protein, Blood 6.1 g/dL (6.4-8.2)
[2023-06-02] MEDS ORDERED: Potassium Phosphate Dibasic 30 MM in Dextrose 5% 500 ML IV STA (06:54)
[2023-06-02 07:35] LABS: BAND PERCENT MAN 4 % (0-8); BASOPHILS PERCENT MAN 0 % (0-2); EOSINOPHILS PERCENT MAN 0 % (0-6); LYMPHOCYTES ABSOLUTE MAN 1.13 K/mm3 (0.84-5.20); LYMPHOCYTES PERCENT MAN 6 % (21-46); MONOCYTES ABSOLUTE MAN 1.32 K/mm3 (0.16-1.47); MONOCYTES PERCENT MAN 7 % (4-13); NEUTROPHILS ABSOLUTE MAN 16.29 K/mm3 (1.96-9.15); PLASMA CELL ABSOLUTE MAN 0.18 K/mm3 (0.00-0.00); PLASMA CELLS PERCENT MAN 1 % (0-0); SEG NEUTROPHILS PERCENT MAN 82 % (41-73); TOTAL CELLS COUNTED 100
[2023-06-02] MEDS ORDERED: Banana Flakes/Tos 1 EA Powder Pack PO SCH ×2 (09:00→21:00)
[2023-06-02 09:35] VITALS: BP 127/93
[2023-06-02 10:30] LABS: C DIFFICILE DNA Duplicate (Negative)
[2023-06-02] MEDS ORDERED: Loperamide HCl 2 MG Cap PO PRN ×2 (11:40→17:05)
[2023-06-02] MEDS ORDERED: Vancomycin HCl 125 MG Cap PO SCH ×2 (12:00)
[2023-06-02] MEDS ORDERED: Vancomycin HCl 250 MG Cap PO SCH (12:00)
[2023-06-02] MEDS ORDERED: Enoxaparin 40 MG/0.4 ML SYR SC SCH (12:00)
[2023-06-02 13:36] LABS: Adenovirus F 40/41 Not Detected (NOT DETECT); Astrovirus Not Detected (NOT DETECT); Campylobacter Sp Not Detected (NOT DETECT); Cryptosporidium Not Detected (NOT DETECT); Cyclospora Cayetanensis Not Detected (NOT DETECT); E. Coli O157 Not Detected (NOT DETECT); Entamoeba Histolytica Not Detected (NOT DETECT); Enteroaggregative E. coli-EAEC Not Detected (NOT DETECT); Enteropathogenic E. coli-EPEC Not Detected (NOT DETECT); Enterotoxigenic E. coli-ETEC Not Detected (NOT DETECT); Giardia Lamblia Not Detected (NOT DETECT); Norovirus GI/GII Not Detected (NOT DETECT); Plesiomonas Shigelloides Not Detected (NOT DETECT); Rotavirus A Not Detected (NOT DETECT); Salmonella Sp Not Detected (NOT DETECT); Sapovirus Not Detected (NOT DETECT); Shiga Toxin-prod E. coli-STEC Not Detected (NOT DETECT); Shigella/Enteroin E. coli-EIEC Not Detected (NOT DETECT); Vibrio Cholerae Not Detected (NOT DETECT); Vibrio Sp Not Detected (NOT DETECT); Yersinia Enterocolitica Not Detected (NOT DETECT)
[2023-06-02 14:41] VITALS: BP 119/66
[2023-06-02 16:46] VITALS: BP 128/78
--- NOTE | 2023-06-02 17:05 | NUR ---
report received and verified, pt a/o x 4 mumbles and makes it hard to understand but pt is doing ok just concerned with his diarrhea. pt scrotum and rectal area very red from the chronic diarrhea will have to be changed often and cleansed throughly. contact iso for possible cdiff and noro on top of esbl in blood and urine. at bedside. pt in and out of sleep pain medication given for leg and back as well as immodium for diarrhea. 2view abd xray in process, daughter at [facility]. labs show cdiff and noro negative pt back from xray, did very well and is struggling from low grade temp 99.8. will cont to monitor.
--- NOTE | 2023-06-02 17:14 | NUR ---
pt turned every 2 hours and julianne well, some pain to lower back that quickly calms
[2023-06-02] MEDS ORDERED: Potassium Chloride 20 MEQ TabCR PO ONE (18:00)
--- NOTE | 2023-06-02 19:51 | NUR ---
PT STABLE REFUSED TO EAT DINNER, TEMP SLIGHTLY ELEVATED AND COVERED WITH TYLENOL, FAMILY AT BEDSIDE. CDIFF AND NORO NEGATIVE BUT PT STILL ON ISO FIR ESBL. WILL CONT TO MONITOR. SEEMS LIKE LOOSE STOOLS HAVE LESSENED
[2023-06-02 20:18] VITALS: BP 129/68
[2023-06-03 03:27] VITALS: BP 143/89
--- NOTE | 2023-06-03 05:24 | NUR ---
SHIFT SUMMARY: Pt admitted for enteritis and is a full code. Is alert and able to make needs known. ADLs have been mostly 2p. Is on contact ISO for ESBL. is noted to have pain while moving in bed but declines to have anything for it when offered. Power glide to left upper arm is patent with dressing that is CDI. currently running [employer] NS.
[2023-06-03 05:45] LABS: BASOPHILS PERCENT AUTO 1 % (0-2); EOSINOPHILS ABSOLUTE AUTO 0.12 K/mm3 (0.00-0.68); EOSINOPHILS PERCENT AUTO 1 % (0-6); Hematocrit 31.4 % (37.0-53.0); Hemoglobin 11.3 g/dL (13.5-17.5); IMMATURE GRAN ABSOLUTE AUTO 0.57 K/mm3 (0.00-0.10); IMMATURE GRAN PERCENT AUTO 3 % (0-1); LYMPHOCYTES ABSOLUTE AUTO 2.24 K/mm3 (0.84-5.20); LYMPHOCYTES PERCENT AUTO 12 % (21-46); MONOCYTES ABSOLUTE AUTO 1.32 K/mm3 (0.16-1.47); MONOCYTES PERCENT AUTO 7 % (4-13); Mean Corpuscular HGB 32.6 pg (26.0-34.0); Mean Corpuscular Volume 91 fL (80-100); Mean Platelet Volume 11.9 fL (9.1-12.4); NEUTROPHILS ABSOLUTE AUTO 13.95 K/mm3 (1.96-9.15); NEUTROPHILS PERCENT AUTO 76 % (41-73); Platelet Count 360 K/mm3 (150-400); RDW Standard Deviation 42.3 fL (35.1-46.3); Red Blood Cell Count 3.47 M/mm3 (4.30-5.90)
[2023-06-03 06:17] LABS: Calcium, Blood 7.9 mg/dL (8.5-10.1); Creatinine, Blood 0.46 mg/dL (0.60-1.20); Potassium, Blood 3.9 mmol/L (3.5-5.5)
[2023-06-03 07:21] VITALS: BP 143/86
--- NOTE | 2023-06-03 13:04 | NUR ---
PHONE CALL PLACED TO DR REYES REQUESTING DRESSING ORDERS TO LEFT KNEE AND RIGHT SHOULDER. VERBAL ORDERS RECIEVED, SEE WOUND CARE ORDERS FOR QOD DRESSING CHANGES AND PRN.
[2023-06-03 16:01] VITALS: BP 107/68
--- NOTE | 2023-06-03 19:18 | NUR ---
SHIFT SUMMARY PATIENT HAD 2 BM DURING DAY SHIFT, 3 TOTAL DURING SHIFT. MEDICATED FOR PAIN PER EMAR. THIS RN CLINICIAN AND COMMUNITY RELATIONS ADVISOR USED LIFT TO ASSIST PATIENT TO CHAIR FOR DINNER, HE HAD AN INCONTINENCE OF BOWEL/BLADDER WITHIN 30 MINUTES OF BEING IN CHAIR. PATIENT ATTEMPTED TO STAND 2 PERSON ASSIST WITH GAIT BELT FROM RECLINER BUT UNABLE TO STAND FOR MORE THAN 1 SECOND. TRACEY AND I GOT HIM BACK TO BED WITH LIFT TO CHANGE HIM. WHILE HE DID NOT EAT BREAKFAST OR LUNCH, HE DID HAVE AN ENSURE TO SUPPLEMENT THESE MEALS 100% FOR EACH. HE IS UP EATING IN BED CHICKEN WINGS BROUGHT IN BY DAUGHTER THIS EVENING. BED IN LOW POSITION, CALL LIGHT IN REACH. PATIENT ABLE TO MAKE NEEDS KNOWN.
[2023-06-03 19:38] VITALS: BP 117/61
[2023-06-04 02:04] VITALS: BP 144/85
[2023-06-04 05:50] LABS: BASOPHILS PERCENT AUTO 1 % (0-2); EOSINOPHILS ABSOLUTE AUTO 0.16 K/mm3 (0.00-0.68); EOSINOPHILS PERCENT AUTO 1 % (0-6); Hematocrit 31.4 % (37.0-53.0); Hemoglobin 10.8 g/dL (13.5-17.5); IMMATURE GRAN ABSOLUTE AUTO 0.55 K/mm3 (0.00-0.10); IMMATURE GRAN PERCENT AUTO 4 % (0-1); LYMPHOCYTES ABSOLUTE AUTO 2.18 K/mm3 (0.84-5.20); LYMPHOCYTES PERCENT AUTO 16 % (21-46); MONOCYTES ABSOLUTE AUTO 1.43 K/mm3 (0.16-1.47); MONOCYTES PERCENT AUTO 11 % (4-13); Mean Corpuscular HGB 31.6 pg (26.0-34.0); Mean Corpuscular HGB Conc 34.4 g/dL (31.5-36.5); Mean Corpuscular Volume 92 fL (80-100); Mean Platelet Volume 11.3 fL (9.1-12.4); NEUTROPHILS ABSOLUTE AUTO 9.26 K/mm3 (1.96-9.15); NEUTROPHILS PERCENT AUTO 68 % (41-73); Platelet Count 338 K/mm3 (150-400); RDW Coefficient Variation 13.2 % (11.7-14.2); RDW Standard Deviation 43.7 fL (35.1-46.3); Red Blood Cell Count 3.42 M/mm3 (4.30-5.90); White Blood Cell Count 13.68 K/mm3 (4.00-11.30)
[2023-06-04 06:20] LABS: Albumin, Blood 1.8 g/dL (3.4-5.0); Albumin/Globulin Ratio 0.4 (0.8-1.8); Bilirubin, Total 0.9 mg/dL (0.1-1.0); Bun/Creatinine Ratio 17.2 (12.0-20.0); Calcium, Blood 8.4 mg/dL (8.5-10.1); Creatinine, Blood 0.47 mg/dL (0.60-1.20); Globulin, Blood 4.3 g/dL (2.2-4.0); Potassium, Blood 3.4 mmol/L (3.5-5.5); Total Protein, Blood 6.1 g/dL (6.4-8.2)
[2023-06-04] MEDS ORDERED: Potassium Chloride 20 MEQ TabCR PO ONE (07:00)
[2023-06-04 07:42] VITALS: BP 184/101
--- NOTE | 2023-06-04 09:36 | NUR ---
ADDENDUM TO CARE ON 06/03/23 AT 1600 DRESSINGS CHANGED TO RIGHT SHOULDER AND LEFT KNEE. BOTH SITES WELL APPROXIMATED, SUTURES IN PLACE, NO REDNESS NOTED. AREAS CLEANSED ORDERED. NEXT DRESSING CHANGES DUE ON 06/05/23 UNLESS DRESSINGS BECOME SOILED OR DISLODGED.
--- NOTE | 2023-06-04 14:14 | NUR ---
GAVE REPORT TO CHRISTINE NASH. CHRISTINE ASSUMED CARE OF PT.
[2023-06-04 14:23] VITALS: BP 158/92
--- NOTE | 2023-06-04 19:26 | NUR ---
SHIFT SUMMARY- BEDSIDE REPORT COMPLETED WITH NIGHT RN. PT ASSISTED BACK TO BED WITH THE LIFT AT THE TIME OF BEDSIDE REPORT. PG TO TRACI WAS SL AT THIS TIME WELL. PT RECIEVED OXY AT 1752 FOR PAIN IN THE LEFT KNEE. PT REPORTS IT IS MUCH BETTER, HOWEVER WITH THE LIFT AND TRANSFER BACK TO BED HE SEEMS TO STILL BE VERY PAINFUL. NIGHT RN AWARE, ONCE THE PT WAS IN BED, AT REST, PAIN SEEMED TO BE MANAGED WELL.
[2023-06-04 19:49] VITALS: BP 125/86
[2023-06-05 01:58] VITALS: BP 98/53
[2023-06-05 04:18] VITALS: BP 126/101
--- NOTE | 2023-06-05 05:31 | NUR ---
SHIFT SUMMARY ILIR WAS ALERT AND ORIENTED X 3-4 AT START OF SHIFT PT WOUND DRESSINGS CDI, DUE TO BE CHANGED TODAY 06/04. PT CONTINUES TO HAVE DIARRHEA, AND WAS THROWING UP THIS SHIFT. MEDICATED PER EMAR. PT COMPLAINS OF PAIN TO L KNEE. LIFT PT AT THIS TIME. SKIN BREAKDOWN NOTED ALL THROUGH FOLDS, JOHN AREA, AND GLUTEAL CLEFT. PT NOT THROWING UP AT THIS TIME. AM BP WAS SOFT, AND HAS BEEN TRENDING DOWN MAMMAL CONTROL AGENT RE-CHECKING AT THIS TIME. NO OTHER CHANGES NOTED TONIGHT, PT RESTING IN BED AT A LOW POSITON WITH CALL LIGHT IN REACH
[2023-06-05 05:44] LABS: BASOPHILS ABSOLUTE AUTO 0.09 K/mm3 (0.00-0.23); BASOPHILS PERCENT AUTO 0 % (0-2); EOSINOPHILS ABSOLUTE AUTO 0.04 K/mm3 (0.00-0.68); EOSINOPHILS PERCENT AUTO 0 % (0-6); Hematocrit 33.5 % (37.0-53.0); Hemoglobin 11.4 g/dL (13.5-17.5); IMMATURE GRAN ABSOLUTE AUTO 0.58 K/mm3 (0.00-0.10); IMMATURE GRAN PERCENT AUTO 3 % (0-1); LYMPHOCYTES ABSOLUTE AUTO 2.04 K/mm3 (0.84-5.20); LYMPHOCYTES PERCENT AUTO 10 % (21-46); MONOCYTES ABSOLUTE AUTO 1.73 K/mm3 (0.16-1.47); MONOCYTES PERCENT AUTO 8 % (4-13); Mean Corpuscular HGB 31.3 pg (26.0-34.0); Mean Corpuscular Volume 92 fL (80-100); Mean Platelet Volume 11.5 fL (9.1-12.4); NEUTROPHILS ABSOLUTE AUTO 16.16 K/mm3 (1.96-9.15); NEUTROPHILS PERCENT AUTO 78 % (41-73); Platelet Count 432 K/mm3 (150-400); RDW Coefficient Variation 12.8 % (11.7-14.2); RDW Standard Deviation 43.3 fL (35.1-46.3); Red Blood Cell Count 3.64 M/mm3 (4.30-5.90); White Blood Cell Count 20.64 K/mm3 (4.00-11.30)
[2023-06-05 06:06] LABS: Albumin, Blood 2.1 g/dL (3.4-5.0); Albumin/Globulin Ratio 0.4 (0.8-1.8); Bun/Creatinine Ratio 16.9 (12.0-20.0); Calcium, Blood 8.8 mg/dL (8.5-10.1); Creatinine, Blood 0.59 mg/dL (0.60-1.20); Potassium, Blood 3.8 mmol/L (3.5-5.5); Total Protein, Blood 7.1 g/dL (6.4-8.2)
[2023-06-05 08:01] VITALS: BP 142/79
[2023-06-05] MEDS ORDERED: Potassium Chloride 10 Meq Tablet SA PO SCH (09:00)
[2023-06-05] MEDS ORDERED: NS 1,000 ML IV SCH (10:00)
--- NOTE | 2023-06-05 18:31 | NUR ---
SHIFT SUMMARY PATIENT ALERT BUT WEAK. PATIENT ABLE TO VERBALIZE NEEDS. CONTINUES TO PASS SMALL AMOUNTS OF GREEN BROWN LIQUID STOOLS. PATIENT VOMITTING WHEN TURNING IN BED. NG TUBE PLACED LATER IN THE SHIFT AND OVER 1000 CC OF BROWN LIQUID REMOVED FROM STOMACH. X RAY DONE TO CONFIRM PLACEMENT. PATIENT AND FAMILY EDUCATED ON NG. PATIENT EATING ICE CHIPS TO MOISTEN MOUTH AND THROAT. WOUND CARE PROVIDED TO KNEE AND SHOULDER ORDERED. FAMILY PHOTOGRAPHED WOUNDS PER PATIENT'S REQUEST. PATIENT RESTING MORE COMFORTABLE AFTER NG PLACED AND FLUID REMOVED.
[2023-06-05 19:36] VITALS: BP 134/71
[2023-06-06 03:04] VITALS: BP 133/73
[2023-06-06 05:13] LABS: BASOPHILS ABSOLUTE AUTO 0.07 K/mm3 (0.00-0.23); BASOPHILS PERCENT AUTO 0 % (0-2); EOSINOPHILS ABSOLUTE AUTO 0.05 K/mm3 (0.00-0.68); EOSINOPHILS PERCENT AUTO 0 % (0-6); Hematocrit 31.6 % (37.0-53.0); Hemoglobin 10.9 g/dL (13.5-17.5); IMMATURE GRAN ABSOLUTE AUTO 0.42 K/mm3 (0.00-0.10); IMMATURE GRAN PERCENT AUTO 3 % (0-1); LYMPHOCYTES PERCENT AUTO 12 % (21-46); MONOCYTES ABSOLUTE AUTO 1.56 K/mm3 (0.16-1.47); MONOCYTES PERCENT AUTO 10 % (4-13); Mean Corpuscular HGB 31.5 pg (26.0-34.0); Mean Corpuscular HGB Conc 34.5 g/dL (31.5-36.5); Mean Corpuscular Volume 91 fL (80-100); Mean Platelet Volume 11.2 fL (9.1-12.4); NEUTROPHILS ABSOLUTE AUTO 12.09 K/mm3 (1.96-9.15); NEUTROPHILS PERCENT AUTO 75 % (41-73); Platelet Count 502 K/mm3 (150-400); RDW Coefficient Variation 13.2 % (11.7-14.2); RDW Standard Deviation 43.8 fL (35.1-46.3); Red Blood Cell Count 3.46 M/mm3 (4.30-5.90); White Blood Cell Count 16.09 K/mm3 (4.00-11.30)
[2023-06-06 05:39] LABS: Albumin, Blood 2.1 g/dL (3.4-5.0); Albumin/Globulin Ratio 0.4 (0.8-1.8); Bun/Creatinine Ratio 21.2 (12.0-20.0); Calcium, Blood 8.6 mg/dL (8.5-10.1); Creatinine, Blood 0.47 mg/dL (0.60-1.20); Globulin, Blood 4.7 g/dL (2.2-4.0); Potassium, Blood 3.4 mmol/L (3.5-5.5); Total Protein, Blood 6.8 g/dL (6.4-8.2)
--- NOTE | 2023-06-06 06:07 | NUR ---
SHIFT SUMMARY ILIR WAS VERY SLEEPY BUT FULLY ORIENTED ON ASSESSMENT. PT REPORTS RELIEF OF N/V SINCE PLACEMENT OF NG TUBE ON DAY SHIFT, 800ML OUT TONIGHT . PT HR WAS MORE ELEVATED TONIGHT, FLUCTUATING FROM 90'S TO 120'S BUT DID NOT MEET PARAMATERS OF PRNS, TELE REPORTS ONE EPISODE OF 9 BEATS SVT. NO OTHER CHANGES. PT RESTING IN BED AT A LOW POSITION WITH CALL LIGHT IN REACH.
[2023-06-06] MEDS ORDERED: Potassium Chloride 20 MEQ TabCR PO ONE (07:00)
--- NOTE | 2023-06-06 07:52 | NUR ---
0750- RN CALLED DR CEDEÑO AND CLARIFIED DIET ORDER. GALA GAVE VERBAL TO STOP REGULAR DIET AND PLACE ORDER FOR CLEAR LIQUID. NG TUBE TO BE STOPPED FOR 30 MINS AFTER RECEIVING MEALS/MEDS.
[2023-06-06 07:55] VITALS: BP 143/81
[2023-06-06 07:56] VITALS: BP 143/81
--- NOTE | 2023-06-06 17:28 | NUR ---
SUMMARY- AAOX4. X2 ASSIST IN BED. PT'S BACK/SHOULDER/KNEE PAIN WELL CONTROLLED WITH EMAR PAIN MEDS. CONDEM CATHETER PLACED ON PT THIS SHIFT TO HELP PREVENT SKIN BREAKDOWN. PT TURNED EVERY TWO HOURS. PT'S RIGHT SHOULDER AND LEFT KNEE DRESSING IS DUE TO BE CHANGED TOMORROW.
[2023-06-06 19:40] VITALS: BP 115/64
[2023-06-06] MEDS ORDERED: Lactobacil 2-S.Thermo-Bifido 1 1 Cap PO SCH (21:00)
[2023-06-07 05:29] VITALS: BP 142/79
[2023-06-07 05:48] LABS: BASOPHILS ABSOLUTE AUTO 0.11 K/mm3 (0.00-0.23); BASOPHILS PERCENT AUTO 1 % (0-2); EOSINOPHILS ABSOLUTE AUTO 0.17 K/mm3 (0.00-0.68); EOSINOPHILS PERCENT AUTO 1 % (0-6); Hematocrit 32.2 % (37.0-53.0); Hemoglobin 10.8 g/dL (13.5-17.5); IMMATURE GRAN ABSOLUTE AUTO 0.29 K/mm3 (0.00-0.10); IMMATURE GRAN PERCENT AUTO 2 % (0-1); LYMPHOCYTES ABSOLUTE AUTO 2.12 K/mm3 (0.84-5.20); LYMPHOCYTES PERCENT AUTO 17 % (21-46); MONOCYTES ABSOLUTE AUTO 1.45 K/mm3 (0.16-1.47); MONOCYTES PERCENT AUTO 12 % (4-13); Mean Corpuscular HGB 31.5 pg (26.0-34.0); Mean Corpuscular HGB Conc 33.5 g/dL (31.5-36.5); Mean Corpuscular Volume 94 fL (80-100); Mean Platelet Volume 10.6 fL (9.1-12.4); NEUTROPHILS ABSOLUTE AUTO 8.16 K/mm3 (1.96-9.15); NEUTROPHILS PERCENT AUTO 66 % (41-73); Platelet Count 560 K/mm3 (150-400); RDW Coefficient Variation 13.3 % (11.7-14.2); RDW Standard Deviation 45.8 fL (35.1-46.3); Red Blood Cell Count 3.43 M/mm3 (4.30-5.90)
[2023-06-07 06:22] LABS: Bun/Creatinine Ratio 23.4 (12.0-20.0); Calcium, Blood 8.8 mg/dL (8.5-10.1); Creatinine, Blood 0.51 mg/dL (0.60-1.20); Potassium, Blood 3.7 mmol/L (3.5-5.5)
--- NOTE | 2023-06-07 06:45 | NUR ---
SHIFT SUMMARY PATIENT REMAINS IN CONTACT ISOLATION FOR ESBL CONDOM CATH WORKING WELL. NG DRAINING GREENISH BROWN THIN LIQUIDS. NO PRN MEDS REQUIRED TONIGHT.TELE SR @ 08
[2023-06-07 07:33] VITALS: BP 140/69
[2023-06-07 15:58] VITALS: BP 138/80
--- NOTE | 2023-06-07 17:44 | NUR ---
SUMMARY PT ALERT AND ORIENTED X4. NO FEELING WELL TODAY. INTERMITTENT SUCTION TO NG TUBE STOPPED THIS MORNING FOR 4 HOURS. PT DID NOT TOLORATED WELL. BECAME NAUSEATED. DR. MCCARTHY NOTIFIED. INTERMITTENT SUCTION RESTARTED AT 1320 TODAY. PT REPORTED NOT SLEEPING WELL LAST NIGHT. PROVIDED UNINTERRUPTED SLEEP FOR SEVERAL HOURS TODAY REQUESTED BY PT AND SPOUSE. TURN Q2-3 HRS. IV ANTIBIOTICS CONTINUED.
[2023-06-07 19:46] VITALS: BP 131/73
--- NOTE | 2023-06-08 05:08 | NUR ---
SHIFT SUMMARY PATIENT SLEPT IN SHORT INTERVALS, WAS INCONTIENT ONLY ONCE OF GUMMY STOOL. DID NOT WANT ANY PRN MEDS. TELE IS SR @ 83. ABD SOFTLY DISTENDED. NG TO LIWS ALL NIGHT.
[2023-06-08 05:57] LABS: BASOPHILS ABSOLUTE AUTO 0.16 K/mm3 (0.00-0.23); BASOPHILS PERCENT AUTO 1 % (0-2); EOSINOPHILS ABSOLUTE AUTO 0.15 K/mm3 (0.00-0.68); EOSINOPHILS PERCENT AUTO 1 % (0-6); Hematocrit 35.5 % (37.0-53.0); Hemoglobin 11.8 g/dL (13.5-17.5); IMMATURE GRAN ABSOLUTE AUTO 0.28 K/mm3 (0.00-0.10); IMMATURE GRAN PERCENT AUTO 2 % (0-1); LYMPHOCYTES ABSOLUTE AUTO 1.76 K/mm3 (0.84-5.20); LYMPHOCYTES PERCENT AUTO 13 % (21-46); MONOCYTES ABSOLUTE AUTO 1.16 K/mm3 (0.16-1.47); MONOCYTES PERCENT AUTO 9 % (4-13); Mean Corpuscular HGB 31.5 pg (26.0-34.0); Mean Corpuscular HGB Conc 33.2 g/dL (31.5-36.5); Mean Corpuscular Volume 95 fL (80-100); Mean Platelet Volume 10.5 fL (9.1-12.4); NEUTROPHILS ABSOLUTE AUTO 9.63 K/mm3 (1.96-9.15); NEUTROPHILS PERCENT AUTO 73 % (41-73); Platelet Count 523 K/mm3 (150-400); RDW Coefficient Variation 13.2 % (11.7-14.2); RDW Standard Deviation 45.9 fL (35.1-46.3); Red Blood Cell Count 3.75 M/mm3 (4.30-5.90); White Blood Cell Count 13.14 K/mm3 (4.00-11.30)
[2023-06-08 06:36] LABS: Bun/Creatinine Ratio 24.8 (12.0-20.0); Calcium, Blood 8.8 mg/dL (8.5-10.1); Creatinine, Blood 0.48 mg/dL (0.60-1.20); Potassium, Blood 4.1 mmol/L (3.5-5.5)
--- NOTE | 2023-06-08 07:37 | NUR ---
SHIFT SUMMARY PATIENT SLEPT IN SHORT INTERVALS, DECLINED PRN MEDICATIONS. HAD 2 INCONT STOOLS. TELE SR @ [employer]. nuPSYSDOM CATH WORKING WELL. NG TO AUDREY. POWERCLIDE INPLACE. TAKING SIPS OF 7-UP.
[2023-06-08 07:44] VITALS: BP 136/91
[2023-06-08] MEDS ORDERED: Ketorolac Tromethamine 15mg Vial IV PRN (11:35)
[2023-06-08] MEDS ORDERED: Metoclopramide HCl 5MG / ML 2ML Vial IV ONE (12:00)
--- NOTE | 2023-06-08 16:22 | NUR ---
PT AOX4 AND COOPERATIVE OF CARE. PT IS A LIFT AT THIS TIME AND STARTED SHIFT OUT VERY NAUSEATED AND WAS TREATED PER EMAR. DR CEDEÑO ORDERED A DOSE OF REGLAN AND REQUESTED Q4 CLAMPING AND RESIDUAL CHECKS TO START. PT'S RESIDUAL WAS CHECKED AT 1400 WITH NO RESIDUAL. PT WAS RECLAMPED. PT IS CURRENTLY SITTING UP IN CHAIR AND TOLERATING WELL. PT TREATED FOR KNEE PAIN PER EMAR. BANDAGE ON L KNEE REPLACED PT TOLERATED WELL WILL CONTINUE TO MONITOR.
[2023-06-08 17:19] VITALS: BP 122/69
[2023-06-08] MEDS ORDERED: Metoclopramide HCl 5MG / ML 2ML Vial IV SCH (17:30)
[2023-06-08 20:00] VITALS: BP 124/65
[2023-06-09 03:12] VITALS: BP 131/78
[2023-06-09 06:16] LABS: BASOPHILS PERCENT AUTO 1 % (0-2); EOSINOPHILS ABSOLUTE AUTO 0.15 K/mm3 (0.00-0.68); EOSINOPHILS PERCENT AUTO 1 % (0-6); Hematocrit 34.7 % (37.0-53.0); Hemoglobin 11.8 g/dL (13.5-17.5); IMMATURE GRAN ABSOLUTE AUTO 0.21 K/mm3 (0.00-0.10); IMMATURE GRAN PERCENT AUTO 2 % (0-1); LYMPHOCYTES PERCENT AUTO 16 % (21-46); MONOCYTES ABSOLUTE AUTO 1.12 K/mm3 (0.16-1.47); MONOCYTES PERCENT AUTO 9 % (4-13); Mean Corpuscular HGB 31.7 pg (26.0-34.0); Mean Corpuscular Volume 93 fL (80-100); Mean Platelet Volume 10.6 fL (9.1-12.4); NEUTROPHILS ABSOLUTE AUTO 9.29 K/mm3 (1.96-9.15); NEUTROPHILS PERCENT AUTO 72 % (41-73); Platelet Count 653 K/mm3 (150-400); RDW Coefficient Variation 13.2 % (11.7-14.2); RDW Standard Deviation 45.3 fL (35.1-46.3); Red Blood Cell Count 3.72 M/mm3 (4.30-5.90); White Blood Cell Count 12.97 K/mm3 (4.00-11.30)
[2023-06-09 06:46] LABS: Albumin, Blood 2.4 g/dL (3.4-5.0); Albumin/Globulin Ratio 0.4 (0.8-1.8); Bun/Creatinine Ratio 33.1 (12.0-20.0); Creatinine, Blood 0.57 mg/dL (0.60-1.20); Globulin, Blood 5.5 g/dL (2.2-4.0); Magnesium, Blood 2.4 mg/dL (1.6-2.4); Phosphorus, Blood 2.7 mg/dL (2.5-4.9); Potassium, Blood 3.9 mmol/L (3.5-5.5); Total Protein, Blood 7.9 g/dL (6.4-8.2)
[2023-06-09 07:44] VITALS: BP 133/79
[2023-06-09] MEDS ORDERED: Tamsulosin HCl 0.4 MG Cap PO SCH (09:00)
--- NOTE | 2023-06-09 09:35 | NUR ---
SHIFT SUMMARY PT IS A&OX4. VSS ON RA. PER TELEMETRY PT IS SR @ 71. PT C/O PAIN IN HIS LEFT KNEE, BUT DENIES THE NEED FOR PAIN MEDICATION. SURE PRESS DRESSING TO LEFT KNEE C/D/I. TOLERATING A CLEAR LIQUID DIET, NO N/V. HOWEVER WHEN RESIDUAL WAS CHECKED FOR HIS CLAMPED NG TUBE, THIS RN WITHREW 100 ML OF DARK BROWNISH GREEN FLUID, SO PUT NG TO LIS. FROM 2230 TO 0615 NG HAD 650 ML OF LIQUID OUT. RECLAMPED AT 0620. PT IS INCONTINENT OF BOWEL AND BLADDER. HIS STOOL IS GELATINOUS AND BLACK IN COLOR. X2 PERSON MAX ASSIST. LIFT PT, NOOB THIS SHIFT. CONTACT PRECAUTIONS MAINTAINED. BED IN LOWEST POSITION, CALL LIGHT WITHIN REACH.
[2023-06-09 11:35] LABS: Stool Occult Blood Guaiac 1 Pos (Neg)
[2023-06-09 15:34] LABS: Hematocrit 35.8 % (37.0-53.0); Hemoglobin 12.1 g/dL (13.5-17.5)
[2023-06-09] MEDS ORDERED: Pantoprazole Sodium 40 MG Tab PO SCH (16:30)
--- NOTE | 2023-06-09 18:23 | NUR ---
SHIFT SUMMARY PT NG CLAMPED THROUGH THE DAY. DAUGHTER BROUGHT A MILKSHAKE AND DRANK A SMALL AMOUNT OF IT JUST PRIOR TO UNCLAMPING NG. ONLY APPROX 10ML SUCTIONED FROM STOMACH OF WHICH APPEARED TO BE THE MILKSHAKE. HAD DENIED NAUSEA THROUGH THE MORNING AND EARLY AFTERNOON. STATES LITTLE APPETITE BUT HAS BEEN DRINKING SMALL AMOUNTS OF WATER AND ENSURE CLEAR. HAD SEVERAL BLACK LIQUID BLACK STOOLS. ONLY 1 OF A MODERATE SIZE WITH THE OTHER 2-3 BEING SMALL. FACE THINNER THAN WHEN I TOOK CARE OF HIM THE DAY AFTER ADMISSION. DRESSINGS TO L KNEE AND R SHOULDER INTACT. HAD URGES TO VOID THIS MORNING BUT STREAM VERY SLOW TO START. MDS NOTIFIED OF BLADDER SCANS. PT ADAMENT ABOUT NOT WANTING A BAEZ PLACED. CONDOM CATH APPLIED WITH PT BEING AGREEABLE TO IT. CEILING LIFT INTO RECLINER CHAIR. FAMILY AT BEDSIDE THROUGH THE DAY.
[2023-06-09 19:26] VITALS: BP 95/59
[2023-06-09] MEDS ORDERED: Doxazosin Mesylate 2 MG Tab PO SCH (21:00)
[2023-06-10 02:53] VITALS: BP 100/56
--- NOTE | 2023-06-10 04:39 | NUR ---
SHIFT SUMMARY REMAINS ON ISOLATION FOR NOROVIRUS. PATIENT REPOSITION EVERY 2 HOURS , REMAINS ON A CLEAR LIQUIED DIET. SLEPT WELL THORUGH THE NIGHT. NO COMPLAINTS OF PAIN.
[2023-06-10 05:35] LABS: BASOPHILS ABSOLUTE AUTO 0.11 K/mm3 (0.00-0.23); BASOPHILS PERCENT AUTO 1 % (0-2); EOSINOPHILS ABSOLUTE AUTO 0.14 K/mm3 (0.00-0.68); EOSINOPHILS PERCENT AUTO 1 % (0-6); Hematocrit 31.4 % (37.0-53.0); Hemoglobin 10.5 g/dL (13.5-17.5); IMMATURE GRAN PERCENT AUTO 1 % (0-1); LYMPHOCYTES ABSOLUTE AUTO 2.25 K/mm3 (0.84-5.20); LYMPHOCYTES PERCENT AUTO 16 % (21-46); MONOCYTES ABSOLUTE AUTO 1.53 K/mm3 (0.16-1.47); MONOCYTES PERCENT AUTO 11 % (4-13); Mean Corpuscular HGB 31.4 pg (26.0-34.0); Mean Corpuscular HGB Conc 33.4 g/dL (31.5-36.5); Mean Corpuscular Volume 94 fL (80-100); Mean Platelet Volume 10.3 fL (9.1-12.4); NEUTROPHILS ABSOLUTE AUTO 9.99 K/mm3 (1.96-9.15); NEUTROPHILS PERCENT AUTO 70 % (41-73); Platelet Count 550 K/mm3 (150-400); RDW Coefficient Variation 13.2 % (11.7-14.2); RDW Standard Deviation 45.5 fL (35.1-46.3); Red Blood Cell Count 3.34 M/mm3 (4.30-5.90); White Blood Cell Count 14.22 K/mm3 (4.00-11.30)
[2023-06-10 06:03] LABS: Albumin, Blood 2.2 g/dL (3.4-5.0); Albumin/Globulin Ratio 0.4 (0.8-1.8); Bilirubin, Total 1.2 mg/dL (0.1-1.0); Bun/Creatinine Ratio 28.2 (12.0-20.0); Creatinine, Blood 0.6 mg/dL (0.60-1.20); Globulin, Blood 4.9 g/dL (2.2-4.0); Potassium, Blood 3.8 mmol/L (3.5-5.5); Total Protein, Blood 7.1 g/dL (6.4-8.2)
[2023-06-10 09:41] VITALS: BP 107/63
[2023-06-10 15:12] VITALS: BP 127/73
[2023-06-10 15:15] LABS: Hematocrit 32.8 % (37.0-53.0)
[2023-06-10] MEDS ORDERED: Peg 400/Hypromellose/Glycerin 15 DROP/ML BTL BOTHEYES SCH (16:30)
--- NOTE | 2023-06-10 18:39 | NUR ---
PATIENT UP IN CHAIR. REPORTING FEELING BETTER. ALERT AND ORIENT TIMES 3. PATIENT REPORTED NO PAIN EXCEPT WHEN MOVING LEFT LEG DURING WOUND DRESSING CHANGE. WOUND DID NOT APPEAR RED OR SWOLLEN. BOTH LEFT LEG AND RIGHT SHOULDER WOUNDS HAD NO DRAINAGE, REDNESS, OR SWELLING. THE INCISION WERE CLEAN DRY AND INTACT. HIS BLOOD PRESSURE WAS SOFT BUT , HELD LORSARTAN, AMLODIPINE. SYSTOLIC 107. CLEAR LUNG SOUNDS, HEART SOUNDS S1 AND S2 NOTED. RADIAL AND PEDIAL PULSES 3+. NO SWELLING OR EDEMA NOTED IN EXTREMITIES.
[2023-06-10 19:59] VITALS: BP 119/97
[2023-06-10] MEDS ORDERED: Pantoprazole Sodium 40 MG Injection IV SCH (21:00)
[2023-06-11 03:55] VITALS: BP 119/74
--- NOTE | 2023-06-11 05:42 | NUR ---
SHIFT SUMMARY: PATIENT NO LONGER HAS NG TUBE, HAS BEEN TOLERATING FULL LIQUID DIET SLOWLY AND SURELY, NO C/O STOMACH PAIN. BOWEL TONES HYPERACTIVE TO ALL FOUR QUADRANTS THIS SHIFT. CONTINUES WITH MERREM TID VIA POWERGLIDE PLACED IN UPPER LEFT ARM. HAS WOUNDS TO RIGHT SHOULDER AND LEFT KNEE, DRESSING WAS CHANGED YESTERDAY, NEED PHOTOS. TRANSFER WITH CEILING LIFT. STAYED IN BED THIS SHIFT.
[2023-06-11 06:40] LABS: BASOPHILS ABSOLUTE AUTO 0.11 K/mm3 (0.00-0.23); BASOPHILS PERCENT AUTO 1 % (0-2); EOSINOPHILS ABSOLUTE AUTO 0.14 K/mm3 (0.00-0.68); EOSINOPHILS PERCENT AUTO 1 % (0-6); Hematocrit 31.9 % (37.0-53.0); Hemoglobin 10.7 g/dL (13.5-17.5); IMMATURE GRAN ABSOLUTE AUTO 0.14 K/mm3 (0.00-0.10); IMMATURE GRAN PERCENT AUTO 1 % (0-1); LYMPHOCYTES ABSOLUTE AUTO 2.14 K/mm3 (0.84-5.20); LYMPHOCYTES PERCENT AUTO 17 % (21-46); MONOCYTES ABSOLUTE AUTO 1.38 K/mm3 (0.16-1.47); MONOCYTES PERCENT AUTO 11 % (4-13); Mean Corpuscular HGB 31.3 pg (26.0-34.0); Mean Corpuscular HGB Conc 33.5 g/dL (31.5-36.5); Mean Corpuscular Volume 93 fL (80-100); Mean Platelet Volume 10.5 fL (9.1-12.4); NEUTROPHILS ABSOLUTE AUTO 8.46 K/mm3 (1.96-9.15); NEUTROPHILS PERCENT AUTO 68 % (41-73); Platelet Count 502 K/mm3 (150-400); RDW Standard Deviation 44.5 fL (35.1-46.3); Red Blood Cell Count 3.42 M/mm3 (4.30-5.90); White Blood Cell Count 12.37 K/mm3 (4.00-11.30)
[2023-06-11 07:10] LABS: Albumin, Blood 2.3 g/dL (3.4-5.0); Albumin/Globulin Ratio 0.5 (0.8-1.8); Bilirubin, Total 1.2 mg/dL (0.1-1.0); Bun/Creatinine Ratio 28.2 (12.0-20.0); Calcium, Blood 8.8 mg/dL (8.5-10.1); Creatinine, Blood 0.53 mg/dL (0.60-1.20); Globulin, Blood 5.1 g/dL (2.2-4.0); Potassium, Blood 3.8 mmol/L (3.5-5.5); Total Protein, Blood 7.4 g/dL (6.4-8.2)
[2023-06-11 07:24] VITALS: BP 112/70
[2023-06-11] MEDS ORDERED: Lactated Ringer's 500 ML IV SCH (08:00)
[2023-06-11 11:54] LABS: SARS-Cov-2 (COVID-19) PCR, MMC NEGATIVE (NEGATIVE)
[2023-06-11] MEDS ORDERED: Cardura1 MG PO (12:18)
[2023-06-11] MEDS ORDERED: PANT40 PO (12:19)
[2023-06-11] MEDS ORDERED: OXAYDO5 M1 PO (12:19)
[2023-06-11] MEDS ORDERED: PROBIOTIC1 EA13 PO (12:20)
[2023-06-11] MEDS ORDERED: ERTAPENEM1 G6 IV (12:21)
--- NOTE | 2023-06-11 15:22 | NUR ---
SHIFT/DISCHARGE SUMMARY: PATIENT A/OX4, ANSWER TO QUESTIONS APPROPRIATELY AND ABLE TO MAKE NEEDS KNOWN. PATIENT DENIES CP/PRESSURE, SOB, N/V AND DIZZINESS. DRESSING CHANGED TO R SHOULDER AND L KNEE PER ORDER. PATIENT RECEIVED IV ABX AND SCHEDULED MEDS PER EMAR. PATIENT INCONTINENCE OF BLADDER, ATTENDS CHANGED PRN, CONTINENCE OF BOWELS AND USES BEDPAN c 2 MAX ASSIST TO ROLL TO HIS SIDE. AT AROUND 1500 PATIENT REPORTS BEING COLD, TEMP TAKEN VIA TEMPORAL 99.0, MEDICATED c PO TYLENOL. PER PATIENT I'M GOOD AND READY TO GET OUT OF HERE. PATIENT DISCHARGING c PICC LINE TO [facility] D/T IV ABX FOR 6 WEEKS. PATIENT DISCHARGE TO [facility]. REPORTS GIVEN TO SAAD CASTRO [facility] AT 1415. DISCHARGE INSTRUCTIONS PACKET GIVEN TO [facility] PERSONNEL. SAAD URIBE SUPERVISOR TUNNEL HEADING, FAXED DISCHARGE PACKET TO [facility]. ALL PATIENT PERSONAL BELONGINGS WERE SENT c THE [facility]. PATIENT LEFT THE ROOM AT 1525 AND WAS TRANSPORTED VIA GURNEY BY [employer] [facility] TO [facility].
== END 2023-06-11 15:28 | DRG 466 ==
LOC: ER 16:55 → MEDS 16:56
PROVIDERS: Emergency Medicine; Family Medicine; Internal Medicine; Orthopaedic Surgery Sports Medicine; Student in an Organized Health Care Education/Training Program; ADMIT Student in an Organized Health Care Education/Training Program
PROC: 0DH67UZ Insertion of Feeding Device into Stomach, Via Natural or Artificial Opening (ICD-10-PCS; 2023-05-28)
PROC: 0S9D3ZZ Drainage of Left Knee Joint, Percutaneous Approach (ICD-10-PCS; 2023-05-28)
PROC: 3E03329 Introduction of Other Anti-infective into Peripheral Vein, Percutaneous Approach (ICD-10-PCS; 2023-06-01)
PROC: 0SPW0JZ Removal of Synthetic Substitute from Left Knee Joint, Tibial Surface, Open Approach (ICD-10-PCS; principal; 2023-06-01 13:00)
PROC: 0SRW0JZ Replacement of Left Knee Joint, Tibial Surface with Synthetic Substitute, Open Approach (ICD-10-PCS; 2023-06-01 13:00)
DX: T84.54XA Infection and inflammatory reaction due to internal left knee prosthesis, initial encounter (principal); A41.51 Sepsis due to Escherichia coli [E. coli]; A04.72 Enterocolitis due to Clostridium difficile, not specified as recurrent; N20.1 Calculus of ureter; N12 Tubulo-interstitial nephritis, not specified as acute or chronic; M62.82 Rhabdomyolysis; M00.9 Pyogenic arthritis, unspecified; N13.39 Other hydronephrosis; N40.0 Benign prostatic hyperplasia without lower urinary tract symptoms; K76.0 Fatty (change of) liver, not elsewhere classified; I10 Essential (primary) hypertension; E87.6 Hypokalemia; E83.39 Other disorders of phosphorus metabolism; I48.0 Paroxysmal atrial fibrillation; M10.9 Gout, unspecified; R74.01 Elevation of levels of liver transaminase levels; M25.511 Pain in right shoulder; Y83.8 Other surgical procedures as the cause of abnormal reaction of the patient, or of later complication, without mention of misadventure at the time of the procedure; Z88.5 Allergy status to narcotic agent; Z79.899 Other long term (current) drug therapy; Z86.718 Personal history of other venous thrombosis and embolism; Z87.891 Personal history of nicotine dependence; Z98.890 Other specified postprocedural states
CPT/HCPCS: 0241U; 36415; 71045; 73030; 73200; 73562-LT; 73700; 74019; 74177; 76705; 76770; 80048; 80053; 80202; 81001; 82272; 82550; 82945; 82947; 83605; 83690; 83735; 84100; 84132; 84157; 85014; 85018; 85025; 85520; 85610; 85651; 85730; 86140; 87040; 87070; 87071; 87075; 87077; 87186; 87205; 87507; 88305; 88311; 89051; 89060; 93005; 93010; 93970; 94760; 96361; 96367; 96372; 96374-59; 96375; 96376; 97110; 97112; 97161; 97530; 99285-25; A9270; C1751; C1776; C8929; C9113; G0378; J0696; J1170; J1644; J1650; J1885; J2185; J2250; J2371; J2405; J2704; J2765; J3010; J3370; J3480; J7030; J7040; J7050; J7060; J7120; Q9957; Q9967; U0002

== ENCOUNTER 2023-06-22 12:37 | Emergency (ER) | payer MEDICARE, OTHER ==
[~2023-06-22] VITALS: Ht 162.6 cm; Wt 110.2 kg
[2023-06-22 19:38] VITALS: BP 112/69
== END 2023-06-22 21:23 | disposition home or self-care (01) ==
LOC: ER 12:37
DX: R53.83 Other fatigue (principal); D72.829 Elevated white blood cell count, unspecified; R82.71 Bacteriuria; R82.998 Other abnormal findings in urine; G89.29 Other chronic pain; M54.9 Dorsalgia, unspecified; I48.91 Unspecified atrial fibrillation; M10.9 Gout, unspecified; E83.119 Hemochromatosis, unspecified; Z96.653 Presence of artificial knee joint, bilateral; Z88.5 Allergy status to narcotic agent; Z79.899 Other long term (current) drug therapy; Z87.891 Personal history of nicotine dependence; Z86.19 Personal history of other infectious and parasitic diseases

== ENCOUNTER → 2023-08-23 | Outpatient (CLI) | payer MEDICARE, OTHER ==
[~2023-08-23] MED LIST changes: +ALLOPURINOL100 M1 PO; +AMLODIPINE BESYL5 MG PO; +AMOCLA875 PO; +Cardura1 MG PO; +ERTAPENEM1 G6 IV; +LOSARTAN POTASS25 M2 PO; +OXAYDO5 M1 PO; +PANT40 PO; +PROBIOTIC1 EA13 PO
[2023-08-23 19:40] LABS: Albumin, Blood 2.9 g/dL (3.4-5.0); Albumin/Globulin Ratio 0.6 (0.8-1.8); Bilirubin, Total 0.7 mg/dL (0.1-1.0); Bun/Creatinine Ratio 15.7 (12.0-20.0); C-REACTIVE PROTEIN, EXT RANGE 6.38 mg/dL (0.000-0.300); Creatinine, Blood 0.64 mg/dL (0.60-1.20); Globulin, Blood 4.8 g/dL (2.2-4.0); Potassium, Blood 3.7 mmol/L (3.5-5.5); Total Protein, Blood 7.7 g/dL (6.4-8.2)
== END | disposition home or self-care (01) ==
LOC: LAB SHORT 12:32 → LAB 12:32
PROVIDERS: Internal Medicine Infectious Disease
DX: T84.59XA Infection and inflammatory reaction due to other internal joint prosthesis, initial encounter (principal); B96.20 Unspecified Escherichia coli [E. coli] as the cause of diseases classified elsewhere; Z96.659 Presence of unspecified artificial knee joint
CPT/HCPCS: 80053; 86140

== ENCOUNTER → 2023-10-13 | Outpatient (CLI) | payer MEDICARE, OTHER ==
[2023-10-15 12:06] LABS: Stool Occult Bld Immuno 1 Negative (NEGATIVE)
== END ==
LOC: LAB SHORT 10:40 → LAB 10:40
PROVIDERS: Physician Assistant
DX: R19.7 Diarrhea, unspecified (principal)
CPT/HCPCS: G0328

== ENCOUNTER → 2023-11-10 | Outpatient (CLI) | payer MEDICARE, OTHER ==
[2023-11-10 18:37] LABS: BASOPHILS ABSOLUTE AUTO 0.08 K/mm3 (0.00-0.23); BASOPHILS PERCENT AUTO 1 % (0-2); EOSINOPHILS ABSOLUTE AUTO 0.19 K/mm3 (0.00-0.68); EOSINOPHILS PERCENT AUTO 3 % (0-6); Hematocrit 45.5 % (37.0-53.0); Hemoglobin 15.2 g/dL (13.5-17.5); IMMATURE GRAN ABSOLUTE AUTO 0.04 K/mm3 (0.00-0.10); IMMATURE GRAN PERCENT AUTO 1 % (0-1); LYMPHOCYTES ABSOLUTE AUTO 2.56 K/mm3 (0.84-5.20); LYMPHOCYTES PERCENT AUTO 37 % (21-46); MONOCYTES ABSOLUTE AUTO 0.83 K/mm3 (0.16-1.47); MONOCYTES PERCENT AUTO 12 % (4-13); Mean Corpuscular HGB 28.7 pg (26.0-34.0); Mean Corpuscular HGB Conc 33.4 g/dL (31.5-36.5); Mean Corpuscular Volume 86 fL (80-100); Mean Platelet Volume 10.7 fL (9.1-12.4); NEUTROPHILS ABSOLUTE AUTO 3.18 K/mm3 (1.96-9.15); NEUTROPHILS PERCENT AUTO 46 % (41-73); Platelet Count 315 K/mm3 (150-400); RDW Coefficient Variation 19.1 % (11.7-14.2); RDW Standard Deviation 58.6 fL (35.1-46.3); Red Blood Cell Count 5.29 M/mm3 (4.30-5.90); White Blood Cell Count 6.88 K/mm3 (4.00-11.30)
== END | disposition home or self-care (01) ==
LOC: LAB 13:15 → LAB SHORT 13:15
PROVIDERS: Orthopaedic Surgery Sports Medicine
DX: T84.54XD Infection and inflammatory reaction due to internal left knee prosthesis, subsequent encounter (principal); M00.862 Arthritis due to other bacteria, left knee; R79.82 Elevated C-reactive protein (CRP); R70.0 Elevated erythrocyte sedimentation rate
CPT/HCPCS: 85025; 85651; 86140